=== PATIENT | male | born 1935 | race African-American/Black ===

== ENCOUNTER 2022-02-06 15:31 | Inpatient (IN) | payer OTHER ==
[~2022-02-06] VITALS: Ht 161.3 cm; Wt 56.8 kg
[2022-02-06] MEDS ORDERED: SODIUM CHLORIDE 0.9% 1,000 ML IV ONE (16:00)
[2022-02-06] MEDS ORDERED: NALOXONE HCL 0.4 MG/ML VIAL IV ONE (16:00)
[2022-02-06 16:36] LABS: Basophils # (auto) 0 10 ^3/uL (0-0.2); Basophils % (auto) 0.9 % (0.0-2.0); Eosinophils # (auto) 0.4 10 ^3/uL (0-0.8); Eosinophils % (auto) 8.8 % (0.0-7.0); Hematocrit 37.1 % (41.0-53.0); Hemoglobin 12.6 g/dL (13.5-17.5); Lymphocytes # (auto) 0.7 10 ^3/uL (0.4-5.4); Lymphocytes % (auto) 14.9 % (10.0-50.0); Mean Corpuscular Hemoglobin 31.1 pg (28.0-32.0); Mean Corpuscular Hgb Conc. 33.9 g/dL (32.0-36.0); Mean Corpuscular Volume 91.8 fL (80.0-100.0); Monocytes # (auto) 0.4 10 ^3/uL (0-1.3); Monocytes % (auto) 8.9 % (0.0-12.0); Neutrophils # (auto) 3.2 10 ^3/uL (1.6-8.6); Neutrophils % (auto) 66.5 % (37.0-80.0); Red Blood Cells 4.05 10^6/uL (4.5-5.90); Red Cell Distribution Width 14.2 % (11.8-14.3); White Blood Cell 4.8 10^3/uL (4.4-10.8)
[2022-02-06 16:43] LABS: Albumin 2.9 g/dL (3.4-5.0); Anion Gap 6 (5-15); Blood Alcohol < 3.0 mg/dL (0-5); Blood Urea Nitrogen 27 mg/dL (7-18); Calcium 7.9 mg/dL (8.5-10.1); Carbon Dioxide 19 mmol/L (21-32); Chloride 118 mmol/L (98-107); Glucose 104 mg/dL (74-106); Potassium 4.4 mmol/L (3.5-5.1); Sodium 143 mmol/L (136-145)
[2022-02-06 16:46] LABS: Alanine Aminotransferase 18 U/L (16-61); Alkaline Phosphatase 76 U/L (45-117); Aspartate Aminotransferase 21 U/L (15-37); BUN/Creatinine Ratio 19.3; Bilirubin, Total 0.4 mg/dL (0.2-1.0); GFR African American 62 mL/min; GFR Non-African American 51 mL/min; Total Protein 6.7 g/dL (6.4-8.2)
[2022-02-06] MEDS ORDERED: ONDANSETRON HCL 4 MG/2 ML VIAL IV PRN (18:15)
[2022-02-06] MEDS ORDERED: DOCUSATE SOD 100 MG CAP PO PRN (18:15)
[2022-02-06] MEDS ORDERED: NITROGLYCERIN 0.4 MG SL TAB SL PRN (18:15)
[2022-02-06 18:47] LABS: Urine Bacteria FEW /hpf (None Seen); Urine Blood Negative /uL (Negative); Urine Hyaline Cast FEW /lpf (0 - 2); Urine Specific Gravity 1.011 (1.001-1.035); Urine WBC 1 /hpf (0 - 3)
[2022-02-06] MEDS: SODIUM CHLORIDE 0.9% 1,000 ML IV SCH ×2 (18:48→22:15)
[2022-02-06 20:30] VITALS: BP 147/72
[2022-02-06 20:57] VITALS: BP 147/72
[2022-02-07 05:00] VITALS: BP 134/69
[2022-02-07 05:47] LABS: Basophils # (auto) 0 10 ^3/uL (0-0.2); Basophils % (auto) 0.7 % (0.0-2.0); Eosinophils # (auto) 0.7 10 ^3/uL (0-0.8); Eosinophils % (auto) 12.3 % (0.0-7.0); Hematocrit 34.5 % (41.0-53.0); Lymphocytes # (auto) 0.9 10 ^3/uL (0.4-5.4); Lymphocytes % (auto) 14.9 % (10.0-50.0); Mean Corpuscular Hemoglobin 31.6 pg (28.0-32.0); Mean Corpuscular Hgb Conc. 34.9 g/dL (32.0-36.0); Mean Corpuscular Volume 90.8 fL (80.0-100.0); Monocytes # (auto) 0.6 10 ^3/uL (0-1.3); Monocytes % (auto) 9.8 % (0.0-12.0); Neutrophils # (auto) 3.6 10 ^3/uL (1.6-8.6); Neutrophils % (auto) 62.3 % (37.0-80.0); Red Cell Distribution Width 13.6 % (11.8-14.3); White Blood Cell 5.8 10^3/uL (4.4-10.8)
[2022-02-07 06:18] LABS: Potassium 4.1 mmol/L (3.5-5.1)
[2022-02-07 06:30] LABS: Albumin 2.7 g/dL (3.4-5.0); BUN/Creatinine Ratio 18.1; Calcium 7.9 mg/dL (8.5-10.1)
[2022-02-07 06:34] LABS: Bilirubin, Total 0.3 mg/dL (0.2-1.0)
[2022-02-07 09:00] VITALS: BP 137/83
[2022-02-07] MEDS: ENOXAPARIN SOD 30 MG/0.3 ML SYRINGE SC SCH (10:14)
[2022-02-07] MEDS: LOSARTAN POTASSIUM 50 MG TAB PO SCH (10:15)
[2022-02-07] MEDS ORDERED: OXYB5TAB61 PO (12:00)
[2022-02-07] MEDS ORDERED: SILO8CAP PO (12:00)
[2022-02-07] MEDS ORDERED: ESOM1CAP12 PO (12:00)
[2022-02-07] MEDS ORDERED: LOSA-69 PO (12:00)
[2022-02-07] MEDS ORDERED: LORazepam 2MG/ML-1ML VIAL IV PRN (12:00)
[2022-02-07] MEDS ORDERED: ASPI-378 PO (12:00)
[2022-02-07 12:17] LABS: Cholesterol 61 mg/dL (< 200); Triglycerides 44 mg/dL (< 150)
[2022-02-07 12:19] LABS: HDL Cholesterol 32 mg/dL (40-59); LDL Cholesterol 28 mg/dL (< 100)
[2022-02-07 13:00] VITALS: BP 154/80
[2022-02-07 17:00] VITALS: BP 145/80
[2022-02-07 21:35] VITALS: BP 157/86
[2022-02-07] MEDS ORDERED: ATORVASTATIN 20 MG TAB PO SCH (22:00)
[2022-02-08] MEDS: SODIUM CHLORIDE 0.9% 1,000 ML IV SCH (03:35)
[2022-02-08 04:53] VITALS: BP 150/72
[2022-02-08 09:00] VITALS: BP 115/87
[2022-02-08] MEDS ORDERED: ASPirin 81 mg TAB PO SCH (10:00)
[2022-02-08] MEDS: LOSARTAN POTASSIUM 50 MG TAB PO SCH (10:27)
[2022-02-08] MEDS: ENOXAPARIN SOD 30 MG/0.3 ML SYRINGE SC SCH (10:27)
[2022-02-08] MEDS ORDERED: LOSA-69 PO (11:44)
[2022-02-08] MEDS ORDERED: METR500T PO (11:48)
== END 2022-02-08 14:40 | disposition home or self-care (01) | DRG 640 ==
LOC: ER 15:31 → EDBD 15:31 → TELE 18:11 → TELE-CENTR 20:40 → OBSVTOIN 02-07 09:38 → TELE 02-07 10:58 → TELE-CENTR 02-07 11:01
PROVIDERS: ADMIT Internal Medicine; ATTEND Hospitalist
DX: E86.0 Dehydration (principal); G93.41 Metabolic encephalopathy; Z20.822 Contact with and (suspected) exposure to COVID-19; I10 Essential (primary) hypertension; Z79.899 Other long term (current) drug therapy; Z82.49 Family history of ischemic heart disease and other diseases of the circulatory system; Z86.73 Personal history of transient ischemic attack (TIA), and cerebral infarction without residual deficits; Z87.442 Personal history of urinary calculi; Z87.891 Personal history of nicotine dependence; Z90.49 Acquired absence of other specified parts of digestive tract; Z98.42 Cataract extraction status, left eye; Z98.41 Cataract extraction status, right eye
CPT/HCPCS: 36415; 70450; 70551; 71045; 80053; 80061; 80320; 81001; 84484; 85025; 93005; 93306; 93886; 96360; 96372; G0378

== ENCOUNTER 2022-08-21 17:10 | Inpatient (IN) | payer OTHER ==
[~2022-08-21] VITALS: Ht 162.6 cm; Wt 57.5 kg
[~2022-08-21 17:10] MED LIST: ASPI-378 PO; ESOM1CAP12 PO; LOSA-69 PO; METR500T PO; OXYB5TAB61 PO; SILO8CAP PO
[2022-08-21 18:16] LABS: Basophils # (auto) 0.1 10 ^3/uL (0-0.2); Basophils % (auto) 1.4 % (0.0-2.0); Eosinophils # (auto) 0.2 10 ^3/uL (0-0.8); Hematocrit 39.7 % (41.0-53.0); Hemoglobin 12.9 g/dL (13.5-17.5); Lymphocytes # (auto) 0.3 10 ^3/uL (0.4-5.4); Lymphocytes % (auto) 3.5 % (10.0-50.0); Mean Corpuscular Hgb Conc. 32.6 g/dL (32.0-36.0); Mean Corpuscular Volume 92.1 fL (80.0-100.0); Monocytes # (auto) 0.3 10 ^3/uL (0-1.3); Monocytes % (auto) 4.2 % (0.0-12.0); Neutrophils # (auto) 6.9 10 ^3/uL (1.6-8.6); Neutrophils % (auto) 88.9 % (37.0-80.0); Nucleated Red Blood Cells % 0.1 %; Red Blood Cells 4.31 10^6/uL (4.5-5.90); Red Cell Distribution Width 13.9 % (11.8-14.3); White Blood Cell 7.8 10^3/uL (4.4-10.8)
[2022-08-21 18:36] LABS: Calcium 8.2 mg/dL (8.5-10.1); Potassium 3.8 mmol/L (3.5-5.1)
[2022-08-21 18:38] LABS: BUN/Creatinine Ratio 19.4
[2022-08-21 18:41] LABS: Bilirubin, Total 0.6 mg/dL (0.2-1.0)
[2022-08-21] MEDS ORDERED: ACETAMINOPHEN 500 MG TAB PO ONE (19:45)
[2022-08-21] MEDS ORDERED: ONDANSETRON HCL 4 MG/2 ML VIAL IV PRN (22:30)
[2022-08-21] MEDS: SOD CHL 0.45% 1,000 ML IV SCH (22:30)
[2022-08-21] MEDS ORDERED: cefTRIAXone 1GM/50ML D5W 50 ML IV ONE (22:30)
[2022-08-21] MEDS ORDERED: ACETAMINOPHEN 325 MG TAB PO PRN (22:30)
[2022-08-21] MEDS ORDERED: DOCUSATE SOD 100 MG CAP PO PRN (22:30)
[2022-08-21] MEDS ORDERED: HYDROcodone-ACET 5/325MG TAB PO PRN (22:30)
[2022-08-21] MEDS ORDERED: NITROGLYCERIN 0.4 MG SL TAB SL PRN (23:30)
[2022-08-21] MEDS ORDERED: MORPHINE SULFATE INJ 2 MG/ml SYRG IV PRN (23:30)
[2022-08-22] MEDS ORDERED: IOHEXOL 350 MG/ML 100ML IJ ONE (00:52)
[2022-08-22 03:43] LABS: Basophils # (auto) 0 10 ^3/uL (0-0.2); Basophils % (auto) 0.4 % (0.0-2.0); Eosinophils # (auto) 0.2 10 ^3/uL (0-0.8); Eosinophils % (auto) 1.7 % (0.0-7.0); Hematocrit 35.5 % (41.0-53.0); Hemoglobin 11.9 g/dL (13.5-17.5); Lymphocytes # (auto) 0.5 10 ^3/uL (0.4-5.4); Lymphocytes % (auto) 6.1 % (10.0-50.0); Mean Corpuscular Hemoglobin 30.1 pg (28.0-32.0); Mean Corpuscular Hgb Conc. 33.6 g/dL (32.0-36.0); Mean Corpuscular Volume 89.7 fL (80.0-100.0); Monocytes # (auto) 0.6 10 ^3/uL (0-1.3); Neutrophils # (auto) 7.6 10 ^3/uL (1.6-8.6); Neutrophils % (auto) 84.8 % (37.0-80.0); Red Blood Cells 3.96 10^6/uL (4.5-5.90); Red Cell Distribution Width 13.8 % (11.8-14.3); White Blood Cell 8.9 10^3/uL (4.4-10.8)
[2022-08-22 04:05] LABS: Albumin 2.5 g/dL (3.4-5.0); BUN/Creatinine Ratio 17.2; Calcium 7.7 mg/dL (8.5-10.1); Potassium 3.3 mmol/L (3.5-5.1)
[2022-08-22 04:07] LABS: Bilirubin, Total 0.5 mg/dL (0.2-1.0); Total Protein 6.3 g/dL (6.4-8.2)
[2022-08-22 08:11] LABS: Urine Bacteria NONE SEEN /hpf (None Seen); Urine Blood Negative /uL (Negative); Urine Mucus FEW (None Seen); Urine Specific Gravity 1.047 (1.001-1.035); Urine WBC 55 /hpf (0 - 3)
[2022-08-22] MEDS: cefTRIAXone 1GM/50ML D5W 50 ML IV SCH (09:22)
[2022-08-22] MEDS: ASPirin 81 mg TAB PO SCH (11:03)
[2022-08-22] MEDS ORDERED: CEPH-510 PO (13:31)
[2022-08-22] MEDS: SOD CHL 0.45% 1,000 ML IV SCH (18:30)
[2022-08-23] MEDS: cefTRIAXone 1GM/50ML D5W 50 ML IV SCH (09:53)
[2022-08-23] MEDS: ASPirin 81 mg TAB PO SCH (10:12)
[2022-08-23 10:16] VITALS: BP 176/109
== END 2022-08-23 11:03 | disposition home or self-care (01) | DRG 92 ==
LOC: ER 17:10 → EDBD 17:10 → OVERFLOW 23:30 → WEST WING 08-22 23:51 → OVERFLOW 08-23 00:43
PROVIDERS: ADMIT Nurse Practitioner Family; ATTEND Internal Medicine
DX: G92.8 Other toxic encephalopathy (principal); N39.0 Urinary tract infection, site not specified; I45.4 Nonspecific intraventricular block; I10 Essential (primary) hypertension; E88.09 Other disorders of plasma-protein metabolism, not elsewhere classified; J98.4 Other disorders of lung; R32 Unspecified urinary incontinence; K21.9 Gastro-esophageal reflux disease without esophagitis; Z20.822 Contact with and (suspected) exposure to COVID-19
CPT/HCPCS: 36415; 70450; 71045; 71275; 80053; 81001; 83605; 83880; 84484; 85025; 85379; 87040; 87426; 93005; 93970; 96365; 96366; 97163; G0378; J0696